=== PATIENT | male | born 1960 | race Caucasian/White ===

== ENCOUNTER 2023-09-22 17:42 | Emergency (ER) | payer OTHER, MEDICAID ==
[~2023-09-22] VITALS: Ht 188 cm; Wt 95.7 kg
[2023-09-22 17:49] VITALS: BP 157/55; PULSE 84; RESP 20; TEMP 97.2; O2SAT 95
[2023-09-22 18:39] LABS: BASOPHILS # (AUTO) 0.1 K/uL (0.00-0.22); BASOPHILS % (AUTO) 0.8 % (0.0-2.0); EOSINOPHILS # (AUTO) 0.3 K/uL (0-0.4); EOSINOPHILS % (AUTO) 4.1 % (0.0-4.0); HEMATOCRIT 37.7 % (36-52); HEMOGLOBIN 12.7 g/dL (12.0-18.0); LYMPHOCYTES # (AUTO) 2.1 K/uL (2.0-11.5); LYMPHOCYTES % (AUTO) 30.1 % (20.5-51.1); MEAN CORPUSCULAR HEMOGLOBIN 32 pg (27-31); MEAN CORPUSCULAR HGB CONC 34 g/dL (33-37); MEAN CORPUSCULAR VOLUME 96.3 fL (80-94); MONOCYTES # (AUTO) 0.9 K/uL (0.8-1.0); MONOCYTES % (AUTO) 13.1 % (1.7-9.3); NEUTROPHILS # (AUTO) 3.6 K/uL (1.8-7.7); NEUTROPHILS % (AUTO) 51.9 % (42.2-75.2); PLATELET COUNT (AUTO) 186 K/uL (140-450); RED BLOOD CELL COUNT(AUTO) 3.92 MIL/uL (4.20-6.10); RED CELL DISTRIBUTION WIDTH 13.8 % (11.6-13.7); WHITE BLOOD COUNT (AUTO) 6.9 K/uL (4.8-10.8)
[2023-09-22 18:58] LABS: ANION GAP 11.7 (8-16); CALCIUM 8.7 mg/dL (8.5-10.1); CARBON DIOXIDE 28.1 mmol/L (21-32); CREATININE 0.8 mg/dL (0.6-1.3); POTASSIUM 3.8 mmol/L (3.5-5.1)
[2023-09-22] MEDS: METOCLOPRAMIDE 10 MG/2 ML INJ VIAL IM ONE (19:44)
[2023-09-22] MEDS: KETOROLAC 30 MG/ML VIAL IM ONE (19:44)
[2023-09-22] MEDS: HYDROcodone/APAP 5/325 MG 1 TAB TAB PO ONE (21:24)
[2023-09-22 22:23] VITALS: BP 144/76; PULSE 84; RESP 20; TEMP 97.2; O2SAT 99
[2023-09-24] MEDS ORDERED: POLY10DR5 OP (05:19)
== END 2023-09-22 22:20 | disposition home or self-care (01) ==
LOC: MED 17:42
DX: R07.89 Other chest pain (principal); G43.909 Migraine, unspecified, not intractable, without status migrainosus; E11.9 Type 2 diabetes mellitus without complications; I10 Essential (primary) hypertension; F25.9 Schizoaffective disorder, unspecified; J44.9 Chronic obstructive pulmonary disease, unspecified; Z86.69 Personal history of other diseases of the nervous system and sense organs; Z86.79 Personal history of other diseases of the circulatory system; Z88.0 Allergy status to penicillin
CPT/HCPCS: 36415; 71045; 80048; 82948; 84484; 85025; 93005; 96372; 99285; J1885; J2765

== ENCOUNTER 2023-11-10 17:34 | Emergency (ER) | payer OTHER, MEDICAID ==
[~2023-11-10] VITALS: Ht 188 cm; Wt 113.4 kg
[~2023-11-10 17:34] MED LIST: GABA300C PO; LINA72CA PO; LIP80 PO; LORA10TA19 PO; LOSA-269 PO; MECL-303 PO; PAM25 PO; TAMS0.4C96 PO
[2023-11-10 17:43] VITALS: BP 120/73; PULSE 98; RESP 15; TEMP 97.9; O2SAT 97
[2023-11-10 18:00] VITALS: O2SAT 95
[2023-11-10 18:46] LABS: BASOPHILS # (AUTO) 0.1 K/uL (0.00-0.22); BASOPHILS % (AUTO) 1.1 % (0.0-2.0); EOSINOPHILS # (AUTO) 0.4 K/uL (0-0.4); EOSINOPHILS % (AUTO) 3.9 % (0.0-4.0); HEMATOCRIT 37.3 % (36-52); HEMOGLOBIN 12.7 g/dL (12.0-18.0); LYMPHOCYTES % (AUTO) 22.3 % (20.5-51.1); MEAN CORPUSCULAR HEMOGLOBIN 33 pg (27-31); MEAN CORPUSCULAR HGB CONC 34 g/dL (33-37); MEAN CORPUSCULAR VOLUME 96.4 fL (80-94); MONOCYTES # (AUTO) 1.1 K/uL (0.8-1.0); MONOCYTES % (AUTO) 12.3 % (1.7-9.3); NEUTROPHILS # (AUTO) 5.5 K/uL (1.8-7.7); NEUTROPHILS % (AUTO) 60.4 % (42.2-75.2); PLATELET COUNT (AUTO) 214 K/uL (140-450); RED BLOOD CELL COUNT(AUTO) 3.87 MIL/uL (4.20-6.10); RED CELL DISTRIBUTION WIDTH 13.3 % (11.6-13.7)
[2023-11-10 19:01] LABS: ANION GAP 12.6 (8-16); CALCIUM 8.7 mg/dL (8.5-10.1); CARBON DIOXIDE 28.2 mmol/L (21-32); CREATININE 0.9 mg/dL (0.6-1.3); POTASSIUM 3.8 mmol/L (3.5-5.1)
[2023-11-10 19:04] LABS: INR 1.14 (0.8-1.2); PROTHROMBIN TIME 11.9 secs (10.8-13.4)
[2023-11-10] MEDS: KETOROLAC 30 MG/ML VIAL IM ONE (19:56)
[2023-11-10] MEDS: GABAPENTIN 300 MG CAP PO ONE (19:57)
[2023-11-10] MEDS: ALUMINUM HYD/MAG/SIMETHICONE 30 ML UDC PO ONE (19:57)
[2023-11-10 22:43] VITALS: BP 119/55; PULSE 84; RESP 18; TEMP 98; O2SAT 98
== END 2023-11-10 22:43 | disposition home or self-care (01) ==
LOC: MED 17:34
DX: R07.89 Other chest pain (principal); K21.9 Gastro-esophageal reflux disease without esophagitis; J44.9 Chronic obstructive pulmonary disease, unspecified; E11.9 Type 2 diabetes mellitus without complications; I10 Essential (primary) hypertension; F03.90 Unspecified dementia, unspecified severity, without behavioral disturbance, psychotic disturbance, mood disturbance, and anxiety; E78.5 Hyperlipidemia, unspecified; F20.9 Schizophrenia, unspecified; Z86.69 Personal history of other diseases of the nervous system and sense organs; Z79.899 Other long term (current) drug therapy; Z88.0 Allergy status to penicillin
CPT/HCPCS: 36415; 71045; 80048; 83880; 84484; 85025; 85610; 85730; 93005; 96372; 99285; J1885; Q0092

== ENCOUNTER 2024-02-08 22:12 | Emergency (ER) | payer OTHER, MEDICAID ==
[~2024-02-08] VITALS: Ht 177.8 cm; Wt 117.9 kg
[2024-02-08 22:14] VITALS: BP 138/96; PULSE 108; RESP 20; TEMP 97.7; O2SAT 96
[2024-02-08 22:44] LABS: BASOPHILS # (AUTO) 0.1 K/uL (0.00-0.22); BASOPHILS % (AUTO) 0.7 % (0.0-2.0); EOSINOPHILS # (AUTO) 0.4 K/uL (0-0.4); EOSINOPHILS % (AUTO) 4.2 % (0.0-4.0); HEMATOCRIT 39.7 % (36-52); HEMOGLOBIN 13.5 g/dL (12.0-18.0); LYMPHOCYTES # (AUTO) 2.8 K/uL (2.0-11.5); LYMPHOCYTES % (AUTO) 29.6 % (20.5-51.1); MEAN CORPUSCULAR HEMOGLOBIN 32 pg (27-31); MEAN CORPUSCULAR HGB CONC 34 g/dL (33-37); MEAN CORPUSCULAR VOLUME 94.3 fL (80-94); MONOCYTES % (AUTO) 10.9 % (1.7-9.3); NEUTROPHILS # (AUTO) 5.1 K/uL (1.8-7.7); NEUTROPHILS % (AUTO) 54.6 % (42.2-75.2); PLATELET COUNT (AUTO) 212 K/uL (140-450); RED BLOOD CELL COUNT(AUTO) 4.21 MIL/uL (4.20-6.10); WHITE BLOOD COUNT (AUTO) 9.3 K/uL (4.8-10.8)
[2024-02-08 22:53] LABS: APPEARANCE,URINE CLEAR (CLEAR); BILIRUBIN,URINE NEGATIVE (NEGATIVE); BLOOD, URINE NEGATIVE (NEGATIVE); COLOR,URINE YELLOW (YELLOW); LEUKOCYTE ESTERASE ,URINE NEGATIVE (NEGATIVE); NITRITE, URINE NEGATIVE (NEGATIVE); PROTEIN,URINE NEGATIVE (NEGATIVE); UGLUCOSE NEGATIVE (NEGATIVE); UROBILINOGEN,URINE 0.2 EU/dL (0.2 - 1)
[2024-02-08 22:58] LABS: INR 1.23 (0.8-1.2); PARTIAL THROMBOPLASTIN TIME 42.6 secs (22-35.6); PROTHROMBIN TIME 12.8 secs (10.8-13.4)
[2024-02-08 23:05] LABS: ALBUMIN 3.2 g/dL (3.4-5.0); ANION GAP 14.2 (8-16); CALCIUM 8.9 mg/dL (8.5-10.1); CREATININE 0.9 mg/dL (0.6-1.3); POTASSIUM 4.2 mmol/L (3.5-5.1); TOTAL BILIRUBIN 0.7 mg/dL (0.0-1.0); TOTAL PROTEIN, SERUM 7.2 g/dL (6.4-8.2)
[2024-02-09] MEDS: ONDANSETRON 4 MG/2 ML VIAL IVP ONE (00:09)
[2024-02-09] MEDS: MORPHINE SULFATE 4 MG/ML SYR IVP ONE (00:12)
[2024-02-09] MEDS ORDERED: CIPR500T4 PO (01:02)
[2024-02-09] MEDS ORDERED: ACET500T99 PO (01:02)
[2024-02-09] MEDS ORDERED: ONDA-188 SL (01:02)
[2024-02-09] MEDS: KETOROLAC 30 MG/ML VIAL IM ONE (02:11)
[2024-02-09] MEDS: ACETAMINOPHEN EXTRA STRENGTH 500 MG TAB PO ONE (06:04)
[2024-02-09 06:10] VITALS: BP 138/96; PULSE 98; RESP 20; TEMP 97.7; O2SAT 94
== END 2024-02-09 06:10 | disposition home or self-care (01) ==
LOC: MED 22:12
DX: N39.0 Urinary tract infection, site not specified (principal); R19.7 Diarrhea, unspecified; R11.0 Nausea; J44.9 Chronic obstructive pulmonary disease, unspecified; E11.9 Type 2 diabetes mellitus without complications; I10 Essential (primary) hypertension; Z86.69 Personal history of other diseases of the nervous system and sense organs; Z79.899 Other long term (current) drug therapy; Z88.0 Allergy status to penicillin; Z88.1 Allergy status to other antibiotic agents
CPT/HCPCS: 36415; 74177; 80053; 81003; 83690; 85025; 85610; 85730; 96372; 96374; 96375; 99285; J1885; J2270; J2405; Q9967